=== PATIENT | male | born 1970 | race Caucasian/White ===

== ENCOUNTER 2023-02-08 21:52 | Emergency (ER) | payer BC ==
[~2023-02-08] VITALS: Ht 182.9 cm; Wt 104.3 kg
[2023-02-09] MEDS ORDERED: DUI500 PO (01:49)
[2023-02-09] MEDS ORDERED: KETO10TA2 PO (01:49)
== END 2023-02-09 01:52 | disposition home or self-care (01) ==
LOC: ER 21:52
DX: S80.11XA Contusion of right lower leg, initial encounter (principal); X58.XXXA Exposure to other specified factors, initial encounter; Y93.9 Activity, unspecified; Y92.89 Other specified places as the place of occurrence of the external cause; Y99.9 Unspecified external cause status